=== PATIENT | female | born 1990 | race Caucasian/White ===

== ENCOUNTER 2018-11-06 14:29 | Emergency (ER) | payer OTHER ==
[2018-11-06 14:38] VITALS: BP 108/79
--- NOTE | 2018-11-06 15:58 | EDM.PDOC ---
ED HPI GENERAL MEDICAL PROBLEM - General Chief Complaint: Chest Pain Stated Complaint: CHEST PAIN Time Seen by Provider: 11/06/18 15:28 Source of Information: Reports: Patient, RN Notes Reviewed History Limitations: Reports: No Limitations - History of Present Illness INITIAL COMMENTS - FREE TEXT/NARRATIVE: Patient is a 28-year-old female who presents to the ED for evaluation of bilateral upper abdominal, lower chest pain. The patient notes that she had her wisdom teeth, 3 of these, taken out this morning with no anesthesia. She took one hydrocodone 5/325 for pain relief and 30 minutes after this developed the upper abdominal, lower chest pain. She notes this to be a 10 out of 10 on the pain scale. She states that the pain does radiate to her back. The patient is achy, sharp, and she notes that she had mild shortness of breath when the pain hit. Patient notes that she has had a prior cholecystectomy, and she denies any GERD type of symptoms. She further denies any fever/chills, nausea/vomiting/diarrhea. Bilateral Chest Pain Score (Numeric/FACES): 10 - Related Data Allergies Allergy/AdvReac Type Severity Reaction Status Date / Time ceftriaxone sodium Allergy Rash Verified 11/06/18 14:40 [From Rocephin] Sulfa (Sulfonamide Allergy Tachycardia Verified 11/06/18 14:40 Antibiotics) Home Meds: Home Meds . 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 - Past Surgical History GI Surgical History: Reports: Cholecystectomy Social & Family History - Tobacco Use Smoking Status *Q: Never Smoker - Caffeine Use Caffeine Use: Reports: Coffee - Recreational Drug Use Recreational Drug Use: No ED ROS GENERAL - Review of Systems Review Of Systems: See Below Constitutional: Denies: Fever, Chills HEENT: Reports: No Symptoms Respiratory: Reports: Shortness of Breath (with episode) Cardiovascular: Reports: Chest Pain (lower chest/upper abdomen) Endocrine: Reports: No Symptoms GI/Abdominal: Reports: Abdominal Pain (upper abdomen pain with radiation to back ). Denies: Constipation, Diarrhea, Nausea, Vomiting : Reports: No Symptoms Musculoskeletal: Reports: No Symptoms Skin: Reports: No Symptoms Neurological: Reports: No Symptoms Psychiatric: Reports: No Symptoms Hematologic/Lymphatic: Reports: No Symptoms ED EXAM, GENERAL - Physical Exam Exam: See Below Exam Limited By: No Limitations General Appearance: Alert, WD/WN, No Apparent Distress Eye Exam: Bilateral Eye: EOMI, Normal Inspection Throat/Mouth: Normal Inspection, Normal Lips, Normal Teeth, Normal Gums, Normal Oropharynx, Normal Voice, No Airway Compromise, Other (recent oral surgery, swelling at gums appreciated.) Head: Atraumatic, Normocephalic Neck: Normal Inspection, Supple, Non-Tender, Full Range of Motion Respiratory/Chest: No Respiratory Distress, Lungs Clear, Normal Breath Sounds, No Accessory Muscle Use, Chest Non-Tender Cardiovascular: Normal Peripheral Pulses, Regular Rate, Rhythm, No Murmur GI/Abdominal: Normal Bowel Sounds, Soft, Non-Tender, No Distention, No Mass Extremities: Normal Inspection, Normal Capillary Refill Neurological: Alert, Oriented, Normal Cognition, No Motor/Sensory Deficits Psychiatric: Normal Affect, Normal Mood Skin Exam: Warm, Dry, Intact, Normal Color, No Rash, Other (mild bilateral facial swelling.) EKG INTERPRETATION EKG Date: 11/06/18 Time: 16:03 Rhythm: NSR Rate (Beats/Min): 67 [place]: Normal P-Wave: Present QRS: Normal ST-T: Normal QT: Normal Comparison: NA - No Prior EKG EKG Interpretation Comments: Normal ECG as reported by Dr. Christianson and myself. Course - Vital Signs Last Recorded V/S: Last Vital Signs Temp 97.8 F 11/06/18 14:34 Pulse 75 11/06/18 14:34 Resp 16 11/06/18 14:34 BP 108/79 11/06/18 14:34 Pulse Ox 99 11/06/18 14:34 - Orders/Labs/Meds Orders: Active Orders 24 hr Category Date Time Status EKG 12 Lead [EKG Documentation Completion] [RC] STAT Care 11/06/18 15:07 Active CMP [COMPREHENSIVE METABOLIC PN,CMP] [CHEM] Stat Lab 11/06/18 15:28 Received TROPONIN I [CHEM] Stat Lab 11/06/18 15:28 Received Labs: Laboratory Tests 11/06/18 Range/Units 15:28 WBC 12.49 H (3.98-10.04) K/mm3 RBC 4.67 (3.98-5.22) M/mm3 Hgb 13.0 (11.2-15.7) gm/L Hct 40.0 (34.1-44.9) % MCV 85.7 (79.4-94.8) fl MCH 27.8 (25.6-32.2) pg MCHC 32.5 (32.2-35.5) g/dl RDW Std Deviation 43.0 (36.4-46.3) fL Plt Count 313 (182-369) K/mm3 MPV 10.4 (9.4-12.3) fl Neut % (Auto) 79.2 H (34.0-71.1) % Lymph % (Auto) 14.7 L (19.3-51.7) % [place] % (Auto) 5.4 (4.7-12.5) % Eos % (Auto) 0.3 L (0.7-5.8) Baso % (Auto) 0.2 (0.1-1.2) % Neut # (Auto) 9.90 H (1.56-6.13) K/mm3 Lymph # (Auto) 1.84 (1.18-3.74) K/mm3 [place] # (Auto) 0.67 H (0.24-0.36) K/mm3 Eos # (Auto) 0.04 (0.04-0.36) K/mm3 Baso # (Auto) 0.02 (0.01-0.08) K/mm3 - Re-Assessments/Exams Free Text/Narrative Re-Assessment/Exam: 11/06/18 15:58 Patient presents to the ED for the evaluation of bilateral upper abdominal pain that felt shortly after taking her hydrocodone prescription. Her EKG was within normal limits. Labs are drawn by triage nurse and demonstrate a mildly elevated white count which may be due to a stress response as she had her wisdom teeth removed. I did discuss with the patient further pain management control, if the hydrocodone does not seem to be sitting well with her. She will try to take some Tylenol or ibuprofen every 6 hours as needed instead. Her pain might likely be due to a common bile duct spasm. Departure - Departure Time of Disposition: 16:00 Disposition: Home, Self-Care 01 Condition: Fair Clinical Impression: Upper abdominal pain Instructions: Managing Pain Without Opioids Referrals: PCP,None [Primary Care Provider] - Forms: ED Department Discharge Additional Instructions: You were evaluated in the ED today for your bilateral upper abdominal pain. Your EKG and laboratory evaluations were within normal limits. Your pain may likely be due to a common bile duct spasm after you took pain medication. You may take 500 mg Tylenol or 600 mg ibuprofen every 6 hours as needed, or 1-2 tabs Aleve every 12 hours as needed for further pain relief. Please do not exceed 4000 mg Tylenol or 3200 mg ibuprofen in a 24-hour time span. Please follow all other discharge instructions set forth by your dentist after the dental extraction. Please return to the ED if your symptoms change or worsen. - My Orders Last 24 Hours: My Active Orders 11/06/18 15:07 EKG 12 Lead [EKG Documentation Completion] [RC] STAT 11/06/18 15:28 CMP [COMPREHENSIVE METABOLIC PN,CMP] [CHEM] Stat TROPONIN I [CHEM] Stat - Assessment/Plan Last 24 Hours: My Active Orders 11/06/18 15:07 EKG 12 Lead [EKG Documentation Completion] [RC] STAT 11/06/18 15:28 CMP [COMPREHENSIVE METABOLIC PN,CMP] [CHEM] Stat TROPONIN I [CHEM] Stat
== END 2018-11-06 16:48 | disposition home or self-care (01) ==
LOC: JD.ED 14:29
DX: R10.11 Right upper quadrant pain (principal); R10.12 Left upper quadrant pain; Z88.1 Allergy status to other antibiotic agents; Z88.2 Allergy status to sulfonamides; Z90.49 Acquired absence of other specified parts of digestive tract
CPT/HCPCS: 36415; 80053; 84484; 85025; 93005; 99285-25

== ENCOUNTER 2019-05-13 14:06 | Emergency (ER) | payer OTHER ==
--- NOTE | 2019-05-13 16:53 | US ---
Left lower extremity deep venous ultrasound: Duplex and color Doppler evaluation of the left common femoral, proximal greater saphenous, superficial femoral, popliteal, posterior tibial and peroneal veins were obtained. Right common femoral vein was also evaluated. Comparison: No previous venous imaging is available. Normal phasic flow, augmentation and compression is seen. Impression: 1. No evidence of deep venous thrombosis within the left lower extremity or within the right common femoral vein. Diagnostic code #1 This report was dictated in [place] Standard Time
--- NOTE | 2019-05-13 17:13 | EDM.PDOC ---
ED HPI GENERAL MEDICAL PROBLEM - General Chief Complaint: General Stated Complaint: SOB - 10 WEEKS PG Time Seen by Provider: 05/13/19 14:24 Source of Information: Reports: Patient History Limitations: Reports: No Limitations - History of Present Illness INITIAL COMMENTS - FREE TEXT/NARRATIVE: The patient presents with chest pain that radiates to her back. This started a couple days ago. She has no shortness of breath with it. She has no fever, chills, cough, congestion, runny nose, abdominal pain, nausea or vomiting. She is 10 weeks gestation and . She has some cramping in her left leg at times but no swelling. She has no history of DVT or PE. She does not smoke. It hurts worse to take a deep breath. Onset: Gradual Duration: Day(s): Location: Reports: Chest, Back Quality: Reports: Sharp Severity: Moderate Improves with: Reports: Immobilization Worsens with: Reports: Movement Context: Denies: Trauma Associated Symptoms: Reports: Chest Pain. Denies: Cough, Fever/Chills, Headaches, Nausea/Vomiting, Shortness of Breath Chest Pain Score (Numeric/FACES): 6 - Related Data Allergies Allergy/AdvReac Type Severity Reaction Status Date / Time ceftriaxone sodium Allergy Rash Verified 05/13/19 14:18 [From Rocephin] Sulfa (Sulfonamide Allergy Tachycardia Verified 05/13/19 14:18 Antibiotics) Home Meds: Home Meds . 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 - Past Surgical History GI Surgical History: Reports: Cholecystectomy Female Surgical History: Reports: Section Social & Family History - Tobacco Use Smoking Status *Q: Never Smoker Second Hand Smoke Exposure: No - Caffeine Use Caffeine Use: Reports: None - Recreational Drug Use Recreational Drug Use: No ED ROS GENERAL - Review of Systems Review Of Systems: See Below Constitutional: Reports: No Symptoms HEENT: Reports: No Symptoms Respiratory: Reports: No Symptoms Cardiovascular: Reports: Chest Pain Endocrine: Reports: No Symptoms GI/Abdominal: Reports: No Symptoms : Reports: No Symptoms Musculoskeletal: Reports: Back Pain ED EXAM, GENERAL - Physical Exam Exam: See Below Exam Limited By: No Limitations General Appearance: Alert, No Apparent Distress Ears: Normal External Exam Nose: Normal Inspection Head: Atraumatic, Normocephalic Neck: Normal Inspection Respiratory/Chest: No Respiratory Distress, Lungs Clear, Normal Breath Sounds Cardiovascular: Regular Rate, Rhythm, No Edema, No Murmur GI/Abdominal: Soft, Non-Tender, No Organomegaly, No Mass Back Exam: Normal Inspection Extremities: Normal Inspection Course - Vital Signs Last Recorded V/S: Last Vital Signs Temp 97.4 F 05/13/19 14:15 Pulse 87 05/13/19 14:15 Resp 16 05/13/19 14:15 BP 124/81 05/13/19 14:15 Pulse Ox 98 05/13/19 14:15 - Orders/Labs/Meds Orders: Active Orders 24 hr Category Date Time Status Cardiac Monitoring [RC] . DIRECTED Care 05/13/19 14:49 Active EKG Documentation Completion [RC] ASDIRECTED Care 05/13/19 15:09 Active EKG 12 Lead [EK] Stat Ther 05/13/19 15:08 Ordered Labs: Laboratory Tests 05/13/19 05/13/19 05/13/19 Range/Units 15:17 15:17 15:17 WBC 11.41 H (3.98-10.04) K/mm3 RBC 4.66 (3.98-5.22) M/mm3 Hgb 13.3 (11.2-15.7) gm/dl Hct 40.8 (34.1-44.9) % MCV 87.6 (79.4-94.8) fl MCH 28.5 (25.6-32.2) pg MCHC 32.6 (32.2-35.5) g/dl RDW Std Deviation 45.9 (36.4-46.3) fL Plt Count 289 (182-369) K/mm3 MPV 10.3 (9.4-12.3) fl Neut % (Auto) 73.8 H (34.0-71.1) % Lymph % (Auto) 19.8 (19.3-51.7) % [place] % (Auto) 5.4 (4.7-12.5) % Eos % (Auto) 0.7 (0.7-5.8) Baso % (Auto) 0.1 (0.1-1.2) % Neut # (Auto) 8.42 H (1.56-6.13) K/mm3 Lymph # (Auto) 2.26 (1.18-3.74) K/mm3 [place] # (Auto) 0.62 H (0.24-0.36) K/mm3 Eos # (Auto) 0.08 (0.04-0.36) K/mm3 Baso # (Auto) 0.01 (0.01-0.08) K/mm3 D-Dimer, Quantitative 0.78 H (0.19-0.50) mg/L Sodium 138 (136-145) mEq/L Potassium 3.7 (3.5-5.1) mEq/L Chloride 104 (98-107) mEq/L Carbon Dioxide 23 (21-32) mEq/L Anion Gap 14.7 (5-15) BUN 8 (7-18) mg/dL Creatinine 0.5 L (0.55-1.02) mg/dL Est Cr Clr Drug Dosing 155.41 mL/min Estimated GFR (MDRD) > 60 (>60) mL/min BUN/Creatinine Ratio 16.0 (14-18) Glucose 95 (74-106) mg/dL Calcium 9.3 (8.5-10.1) mg/dL Total Bilirubin 0.5 (0.2-1.0) mg/dL AST 11 L (15-37) U/L ALT 26 (14-59) U/L Alkaline Phosphatase 65 (46-116) U/L Troponin I < 0.017 (0.00-0.056) ng/mL Total Protein 7.4 (6.4-8.2) g/dl Albumin 2.9 L (3.4-5.0) g/dl Globulin 4.5 gm/dL Albumin/Globulin Ratio 0.6 L (1-2) - Re-Assessments/Exams Free Text/Narrative Re-Assessment/Exam: 05/13/19 17:20 I ordered an EKG and it shows a NSR with no acute changes. Her WBC is elevated slightly at 11.41. Her D-dimer was elevated at 0.78. Her CMP is negative. Her troponin is negative. She does have some cramping in her left leg so I got an US of her left leg. The US shows no evidence of DVT within the left lower extremity or within the right common femoral vein. Her vitals are normal and do not support a DVT. Her US looks good. I do not think she has a DVT or PE. I will have her take some tylenol for the pain an follow up with OB. Departure - Departure Time of Disposition: 17:25 Disposition: Home, Self-Care 01 Condition: Good Clinical Impression: Atypical chest pain Thoracic back pain Qualifiers: Chronicity: acute Back pain laterality: bilateral Qualified Code(s): M54.6 - Pain in thoracic spine - Discharge Information *PRESCRIPTION DRUG MONITORING PROGRAM REVIEWED*: Not Applicable *COPY OF PRESCRIPTION DRUG MONITORING REPORT IN PATIENT JOYCELYN: Not Applicable Referrals: Zia Cornejo MD [Primary Care Provider] - 1 Week Forms: ED Department Discharge Additional Instructions: Take tylenol as needed for pain. Drink plenty of fluids. Follow up with your doctor within a week. Please return if you are worse. Sepsis Event Note - Evaluation Sepsis Screening Result: No Definite Risk - Focused Exam Vital Signs: Vital Signs Temp Pulse Resp BP Pulse Ox 05/13/19 14:15 97.4 F 87 16 124/81 98 Date Exam was Performed: 05/13/19 Time Exam was Performed: 17:16 - My Orders Last 24 Hours: My Active Orders 05/13/19 14:49 Cardiac Monitoring [RC] . DIRECTED 05/13/19 15:08 EKG 12 Lead [EK] Stat 05/13/19 15:09 EKG Documentation Completion [RC] ASDIRECTED - Assessment/Plan Last 24 Hours: My Active Orders 05/13/19 14:49 Cardiac Monitoring [RC] . DIRECTED 05/13/19 15:08 EKG 12 Lead [EK] Stat 05/13/19 15:09 EKG Documentation Completion [RC] ASDIRECTED
[2019-05-13 17:36] VITALS: BP 104/57; PULSE 84
== END 2019-05-13 17:30 | disposition home or self-care (01) ==
LOC: JD.ED 14:06
DX: R07.89 Other chest pain (principal); M54.6 Pain in thoracic spine; Z88.2 Allergy status to sulfonamides; Z88.8 Allergy status to other drugs, medicaments and biological substances
CPT/HCPCS: 36415; 80053; 84484; 85025; 85379; 93005; 93010; 93971-26-LT; 93971-LT; 99283; 99285-25

== ENCOUNTER 2019-11-10 05:55 | Inpatient (IN) | payer OTHER ==
[~2019-11-10 05:55] MED LIST: Lidocaine 1.5% with EPINEPHrine 1:200,000 5 ML Amp ONE
[2019-11-10] MEDS ORDERED: Sodium Chloride 0.9% 10 ML Syringe FLUSH PRN (06:59)
[2019-11-10] MEDS ORDERED: Nalbuphine 10 MG/ML Syringe IVPUSH PRN (06:59)
[2019-11-10] MEDS ORDERED: Lidocaine 1% 50 ML MDV INJECT ONE (06:59)
[2019-11-10] MEDS ORDERED: Oxytocin/Lactated Ringers 10 UNIT/1,000 ML BAG IV SCH (07:00)
[2019-11-10] MEDS: Lactated Ringers 1,000 ML IV SCH ×2 (07:05→08:03)
--- NOTE | 2019-11-10 07:22 | PCM.LDHP ---
L&D History of Present Illness - General Date of Service: 11/10/19 Admit Problem/Dx: Patient Status Order with Admit Dx/Problem 11/10/19 06:05 Patient Status [ADT] Routine 11/10/19 06:59 Patient Status [ADT] Routine Admission Diagnosis/Problem Admission Diagnosis/Problem - History of Present Illness Introduction:: 29 year old at 35w6 here in active labor. PNC with Dr. Cornejo complicated only by prior with 4 subsequent vaginal deliveries. - Related Data Allergies/Adverse Reactions: Allergies Allergy/AdvReac Type Severity Reaction Status Date / Time ceftriaxone sodium Allergy Rash Verified 05/13/19 14:18 [From Rocephin] Sulfa (Sulfonamide Allergy Tachycardia Verified 05/13/19 14:18 Antibiotics) Home Medications: Home Meds . [No Known Home Meds] 11/06/18 [History] Past Medical History Other OB/BYN History: csection 9yrs ago - Past Surgical History GI Surgical History: Reports: Cholecystectomy Female Surgical History: Reports: Section Social & Family History - Caffeine Use Caffeine Use: Reports: None H&P Review of Systems - Review of Systems: Review Of Systems: See Below General: Reports: No Symptoms HEENT: Reports: No Symptoms Pulmonary: Reports: No Symptoms Cardiovascular: Reports: No Symptoms Gastrointestinal: Reports: No Symptoms Genitourinary: Reports: No Symptoms Musculoskeletal: Reports: No Symptoms Skin: Reports: No Symptoms Psychiatric: Reports: No Symptoms Neurological: Reports: No Symptoms Hematologic/Lymphatic: Reports: No Symptoms Immunologic: Reports: No Symptoms L&D Exam - Exam Exam: See Below - Vital Signs Vital Signs: Last Vital Signs Temp 36.3 C 11/10/19 06:51 Pulse 91 11/10/19 06:51 Resp 15 11/10/19 06:51 BP 133/83 11/10/19 06:51 Pulse Ox - OB Specific Contraction Intensity: Moderate to Strong Movement: Active Heart Tones: Present - Ramirez Score Ramirez Score Cervix Position: Anterior Ramirez Score Consistency: Soft Ramirez Score Effacement: 51-70% Ramirez Score Dilation: > 5 cm Ramirez Score 's Station: -3 Ramirez Score Total: 9 - Exam General: Alert, Oriented HEENT: PERRLA, Conjunctiva Clear, EACs Clear, EOMI, Hearing Intact, Mucosa Moist & [place], Nares Patent, Normal Nasal Septum, Posterior Pharynx Clear, TMs Clear Neck: Supple, Trachea Midline Lungs: Clear to Auscultation, Normal Respiratory Effort Cardiovascular: Regular Rate, Regular Rhythm GI/Abdominal Exam: Normal Bowel Sounds, Soft, Non-Tender, No Organomegaly, No Distention, No Abnormal Bruit, No Mass, Pelvis Stable Back Exam: Normal Inspection, Full Range of Motion Extremities: Normal Inspection, Normal Range of Motion, Non-Tender, No Pedal Edema, Normal Capillary Refill Skin: Warm, Dry, Intact Neurological: Cranial Nerves Intact, Reflexes Equal Bilateral Psychiatric: Alert, Normal Affect, Normal Mood Problem List Initiated/Reviewed/Updated: Yes Orders Last 24hrs: Active Orders 24 hr Category Date Time Status Patient Status [ADT] Routine ADT 11/10/19 06:59 Active Activity as Tolerated [RC] PFP Care 11/10/19 06:59 Active Communication Order [RC] ASDIRECTED Care 11/10/19 06:59 Active Heart Tones [RC] ASDIRECTED Care 11/10/19 07:00 Active Non Stress Test [RC] PER UNIT ROUTINE Care 11/10/19 06:05 Active Notify Provider [RC] PFP Care 11/10/19 06:59 Active Notify Provider [RC] PRN Care 11/10/19 06:59 Active Peripheral IV Care [RC] . DIRECTED Care 11/10/19 07:00 Active Urinary Catheter Assessment [RC] ASDIRECTED Care 11/10/19 06:59 Active Vital Signs [RC] PER UNIT ROUTINE Care 11/10/19 06:05 Active Regular Diet [DIET] Diet 11/10/19 Breakfast Active CBC WITH AUTO DIFF [HEME] Stat Lab 11/10/19 06:59 Ordered GROUP B STREP BY PCR [MOLEC] Routine Lab 11/10/19 06:30 Received RAPID PLASMA REAGIN,RPR [CHEM] Routine Lab 11/10/19 06:59 Ordered Lactated Ringers [Ringers, Lactated] 1,000 ml Med 11/10/19 07:00 Active IV ASDIRECTED Nalbuphine [Nubain] Med 11/10/19 06:59 Active 10 mg IVPUSH Q2H PRN Oxytocin/Lactated Ringers [Pitocin in LR 10 Units/1,000 Med 11/10/19 07:00 Active ML] 10 unit in 1,000 ml IV .CONTINUOUS Sodium Chloride 0.9% [Saline Flush] Med 11/10/19 06:59 Active 10 ml FLUSH ASDIRECTED PRN Vancomycin [Vancocin] 1 gm Med 11/10/19 09:00 Active Sodium Chloride 0.9% [Normal Saline (AdvBag)] 250 ml IV Q12HR Electronic Heart Tones Ext w TOCO [WOMSER] Ot 11/10/19 06:59 Ordered Routine Electronic Heart Tones Internal [WOMSER] Per Unit Ot 11/10/19 06:59 Ordered Routine Peripheral IV Insertion Adult [OM.PC] Routine Oth 11/10/19 06:59 Ordered Resuscitation Status Routine Resus Stat 11/10/19 06:05 Ordered Medication Orders Lactated Ringer's (Ringers, Lactated) 1,000 mls @ 100 mls/hr IV ASDIRECTED LYUDMILA Vancomycin HCl 1 gm/ Sodium (Chloride) 250 mls @ 167 mls/hr IV Q12HR LYUDMILA Oxytocin/Lactated Ringer's (Pitocin In Lr 10 Units/1,000 Ml) 10 unit in 1,000 mls @ 100 mls/hr IV .CONTINUOUS LYUDMILA; Protocol Nalbuphine HCl (Nubain) 10 mg IVPUSH Q2H PRN PRN Reason: Pain Sodium Chloride (Saline Flush) 10 ml FLUSH ASDIRECTED PRN PRN Reason: Keep Vein Open Assessment/Plan Comment:: labor. Dr. Herrera aware. 35w6d. Active and risk of delivery en route high enough will not transfer. GBS pending and allergies so will use vancomycin as no sensitivities available TOLAC. Has been planning this. Good candidate as prior successful. Does understand risk of rupture including maternal or .
[2019-11-10] MEDS ORDERED: fentaNYL 100 MCG/2 ML SDV ONE (07:23)
[2019-11-10] MEDS ORDERED: diphenhydrAMINE 50 MG/ML SDV IVPUSH PRN (07:44)
[2019-11-10] MEDS ORDERED: fentaNYL 100 MCG/2 ML SDV EPIDUR PRN (07:44)
[2019-11-10] MEDS ORDERED: Bupivacaine/fentaNYL/NS 100 ML Bag EPIDUR PRN (07:44)
[2019-11-10] MEDS ORDERED: ePHEDrine 50 MG/ML SDV IVPUSH PRN (07:44)
--- NOTE | 2019-11-10 07:49 | PCM.PREANE ---
Preanesthetic Assessment - Procedure Proposed Procedure: Continuous labor epidural - Anesthesia/Transfusion/Family Hx Anesthesia History: Prior Anesthesia Without Reaction Transfusion History: Prior Transfusion Without Reaction - Review of Systems General: No Symptoms Pulmonary: No Symptoms Cardiovascular: No Symptoms Gastrointestinal: No Symptoms Neurological: No Symptoms Other: Reports: None - Physical Assessment Vital Signs: Last Vital Signs Temp 97.4 F 11/10/19 06:51 Pulse 91 11/10/19 06:51 Resp 15 11/10/19 06:51 BP 133/83 11/10/19 06:51 Pulse Ox Height: 1.68 m Weight: 102.058 kg ASA Class: 2 Mental Status: Alert & Oriented x3 Airway Class: Mallampati = 1 Dentition: Reports: Normal Dentition Thyro-Mental Finger Breadths: 3 Mouth Opening Finger Breadths: 3 ROM/Head Extension: Full Lungs: Clear to Auscultation, Normal Respiratory Effort Cardiovascular: Regular Rate, Regular Rhythm - Lab Values: Laboratory Last Values WBC 10.31 K/mm3 (3.98-10.04) H 11/10/19 07:07 RBC 4.04 M/mm3 (3.98-5.22) 11/10/19 07:07 Hgb 10.7 gm/dl (11.2-15.7) L 11/10/19 07:07 Hct 34.4 % (34.1-44.9) 11/10/19 07:07 MCV 85.1 fl (79.4-94.8) D 11/10/19 07:07 MCH 26.5 pg (25.6-32.2) 11/10/19 07:07 MCHC 31.1 g/dl (32.2-35.5) L 11/10/19 07:07 RDW Std Deviation 44.3 fL (36.4-46.3) 11/10/19 07:07 Plt Count 316 K/mm3 (182-369) 11/10/19 07:07 MPV 10.1 fl (9.4-12.3) 11/10/19 07:07 Neut % (Auto) 73.5 % (34.0-71.1) H 11/10/19 07:07 Lymph % (Auto) 18.7 % (19.3-51.7) L 11/10/19 07:07 [place] % (Auto) 7.0 % (4.7-12.5) 11/10/19 07:07 Eos % (Auto) 0.4 (0.7-5.8) L 11/10/19 07:07 Baso % (Auto) 0.1 % (0.1-1.2) 11/10/19 07:07 Neut # (Auto) 7.58 K/mm3 (1.56-6.13) H 11/10/19 07:07 Lymph # (Auto) 1.93 K/mm3 (1.18-3.74) 11/10/19 07:07 [place] # (Auto) 0.72 K/mm3 (0.24-0.36) H 11/10/19 07:07 Eos # (Auto) 0.04 K/mm3 (0.04-0.36) 11/10/19 07:07 Baso # (Auto) 0.01 K/mm3 (0.01-0.08) 11/10/19 07:07 - Allergies Allergies/Adverse Reactions: Allergies Allergy/AdvReac Type Severity Reaction Status Date / Time ceftriaxone sodium Allergy Rash Verified 11/10/19 07:35 [From Rocephin] Sulfa (Sulfonamide Allergy Tachycardia Verified 11/10/19 07:35 Antibiotics) - Acknowledgements Anesthesia Type Planned: Epidural Pt an Appropriate Candidate for the Planned Anesthesia: Yes Alternatives and Risks of Anesthesia Discussed w Pt/Guardian: Yes Pt/Guardian Understands and Agrees with Anesthesia Plan: Yes PreAnesthesia Questionnaire Other OB/BYN History: csection 9yrs ago - Past Surgical History GI Surgical History: Reports: Cholecystectomy Female Surgical History: Reports: Section - HOME MEDS Home Medications: Home Meds Pnv,Calcium 72/Iron/Folic Acid [ Plus Tablet] 1 tab PO DAILY 11/10/19 [History] - CURRENT (IN HOUSE) MEDS Current Meds: Current Medications Lactated Ringer's (Ringers, Lactated) 1,000 mls @ 100 mls/hr IV ASDIRECTED [facility] Last Admin: 11/10/19 07:05 Dose: 999 mls/hr Documented by: Vancomycin HCl 1 gm/ Sodium (Chloride) 250 mls @ 167 mls/hr IV Q12HR [facility] Last Admin: 11/10/19 07:15 Dose: 167 mls/hr Documented by: Oxytocin/Lactated Ringer's (Pitocin In Lr 10 Units/1,000 Ml) 10 unit in 1,000 mls @ 100 mls/hr IV .CONTINUOUS LYUDMILA; Protocol Nalbuphine HCl (Nubain) 10 mg IVPUSH Q2H PRN PRN Reason: Pain Sodium Chloride (Saline Flush) 10 ml FLUSH ASDIRECTED PRN PRN Reason: Keep Vein Open Discontinued Medications Fentanyl (Sublimaze) Confirm Administered Dose 100 mcg .ROUTE .DNAe LTD-MED ONE Stop: 11/10/19 07:24 Lidocaine HCl (Xylocaine 1%) 50 ml INJECT ONETIME ONE Stop: 11/10/19 07:00
--- NOTE | 2019-11-10 10:36 | PCM.SN.2 ---
- Free Text/Narrative Note: Stage I - Patient presented in active labor. Changed from 3 to 5 cm in less than an hour. Epidural for anesthesia. Antibiotics for unknown GBS given. AROM clear fluid. Progressed rapidly to complete. Stage II - of viable female, 7#, 8/9 APGARS at 1000. Head delivered in controlled manner over intact perineum. body and shoulders followed without difficulty. To maternal abdomen. Positive cry. Cord clamped and cut after one minute of life. To warmer. Cord blood collected. Stage III - of intact placenta. 3vc. No lacerations. EBL 200.
[2019-11-10] MEDS ORDERED: Witch Hazel Medicated Pads 40/Jar TOP PRN (11:07)
[2019-11-10] MEDS ORDERED: Docusate Sodium 100 MG Cap PO PRN (11:07)
[2019-11-10] MEDS: Ibuprofen 600 MG Tab PO PRN (14:08)
--- NOTE | 2019-11-11 07:32 | PCM48HPAN ---
Post Anesthesia Note - EVALUATION WITHIN 48HRS OF ANESTHETIC Vital Signs in Normal Range: Yes Patient Participated in Evaluation: Yes Respiratory Function Stable: Yes Airway Patent: Yes Cardiovascular Function Stable: Yes Hydration Status Stable: Yes Pain Control Satisfactory: Yes Nausea and Vomiting Control Satisfactory: Yes Mental Status Recovered: Yes Vital Signs: Last Vital Signs Temp 97.5 F 11/11/19 04:36 Pulse 73 11/11/19 04:36 Resp 16 11/11/19 04:36 BP 133/82 11/11/19 04:36 Pulse Ox 96 11/11/19 04:36
[2019-11-11] MEDS: Ibuprofen 600 MG Tab PO PRN (14:56)
[2019-11-12 03:27] VITALS: BP 123/78; PULSE 67
--- NOTE | 2019-11-12 06:45 | PCM.DCSUM1 ---
Discharge Summary - Hospital Course Diagnosis: Stroke: No - Discharge Data Discharge Date: 11/12/19 Discharge Disposition: Home, Self-Care 01 Condition: Good - Referral to Home Health Primary Care Physician: Zia Cornejo MD - Patient Summary/Data Hospital Course: Stage I - Patient presented in active labor. Changed from 3 to 5 cm in less than an hour. Epidural for anesthesia. Antibiotics for unknown GBS given. AROM clear fluid. Progressed rapidly to complete. Stage II - of viable female, 7#, 8/9 APGARS at 1000. Head delivered in controlled manner over intact perineum. body and shoulders followed without difficulty. To maternal abdomen. Positive cry. Cord clamped and cut after one minute of life. To warmer. Cord blood collected. Stage III - of intact placenta. 3vc. No lacerations. EBL 200. - Patient Instructions Showering/Bathing: May Shower Notify Provider of: Fever, Increased Pain, Swelling and Redness, Drainage, Nausea and/or Vomiting - Discharge Plan *PRESCRIPTION DRUG MONITORING PROGRAM REVIEWED*: No *COPY OF PRESCRIPTION DRUG MONITORING REPORT IN PATIENT JOYCELYN: No Home Medications: Home Meds Pnv,Calcium 72/Iron/Folic Acid [ Plus Tablet] 1 tab PO DAILY 11/10/19 [History] - Discharge Summary/Plan Comment DC Time >30 min.: No - Patient Data Vitals - Most Recent: Last Vital Signs Temp 36.4 C 11/12/19 02:49 Pulse 67 11/12/19 02:49 Resp 15 11/12/19 02:49 BP 123/78 11/12/19 02:49 Pulse Ox 98 11/12/19 02:49 Weight - Most Recent: 102.058 kg I&O - Last 24 hours: Intake & Output 11/11/19 11/11/19 11/12/19 14:59 22:59 06:59 Intake Total 120 240 Balance 120 240 Lab Results - Last 24 hrs: Laboratory Results - last 24 hr 11/10/19 Range/Units 06:30 Group B Strep (PCR) Negative (NEGATIVE) Med Orders - Current: Current Medications Docusate Sodium (Colace) 100 mg PO BID PRN PRN Reason: Constipation Ibuprofen (Motrin) 600 mg PO Q6H PRN PRN Reason: Mild pain or fever Last Admin: 11/11/19 14:56 Dose: 600 mg Documented by: Maribell Valles) 1 pad TOP ASDIRECTED PRN PRN Reason: Pain Discontinued Medications Diphenhydramine HCl (Benadryl) 25 mg IVPUSH Q6H PRN PRN Reason: pruritis Ephedrine Sulfate (Ephedrine Sulfate) 5 mg IVPUSH ASDIRECTED PRN PRN Reason: Hypotension Fentanyl (Sublimaze) Confirm Administered Dose 100 mcg .ROUTE .STK-MED ONE Stop: 11/10/19 07:24 Last Admin: 11/10/19 08:49 Dose: Not Given Documented by: Fentanyl (Sublimaze) 100 mcg EPIDUR Q3H PRN PRN Reason: Pain Last Admin: 11/10/19 08:34 Dose: 100 mcg Documented by: Fentanyl/Bupivacaine HCl (Fentanyl/Bupivacaine/Ns 2 Mcg-0.125% 100 Ml) 100 ml EPIDUR ASDIRECTED PRN PRN Reason: Pain Last Admin: 11/10/19 08:35 Dose: 100 ml Documented by: Lactated Ringer's (Ringers, Lactated) 1,000 mls @ 100 mls/hr IV ASDIRECTED LYUDMILA Last Admin: 11/10/19 08:03 Dose: 999 mls/hr Documented by: Vancomycin HCl 1 gm/ Sodium (Chloride) 250 mls @ 167 mls/hr IV Q12HR LYUDMILA Last Admin: 11/10/19 11:19 Dose: Not Given Documented by: Oxytocin/Lactated Ringer's (Pitocin In Lr 10 Units/1,000 Ml) 10 unit in 1,000 mls @ 100 mls/hr IV .CONTINUOUS LYUDMILA; Protocol Lidocaine HCl (Xylocaine 1%) 50 ml INJECT ONETIME ONE Stop: 11/10/19 07:00 Last Admin: 11/10/19 11:19 Dose: Not Given Documented by: Lidocaine/Epinephrine (Xylocaine-Mpf 1.5% W/Epinephrine 1:200,000) 5 ml .ROUTE .STK-MED ONE Stop: 11/10/19 00:01 Lidocaine/Epinephrine (Xylocaine-Mpf 1.5% W/Epinephrine 1:200,000) 5 ml .ROUTE .STK-MED ONE Stop: 11/10/19 00:01 Nalbuphine HCl (Nubain) 10 mg IVPUSH Q2H PRN PRN Reason: Pain Sodium Chloride (Saline Flush) 10 ml FLUSH ASDIRECTED PRN PRN Reason: Keep Vein Open
== END 2019-11-12 09:23 | disposition home or self-care (01) | DRG 807 ==
LOC: JD.OBCHECK 05:55 → JD.OB 06:00 → JD.OBCHECK 06:58 → JD.OB 06:59 → OBSVTOIN 10:00 → JD.OB 10:24
PROVIDERS: ADMIT Obstetrics & Gynecology; ATTEND Obstetrics & Gynecology
PROC: 10E0XZZ Delivery of Products of Conception, External Approach (ICD-10-PCS; principal; 2019-11-10)
PROC: 10907ZC Drainage of Amniotic Fluid, Therapeutic from Products of Conception, Via Natural or Artificial Opening (ICD-10-PCS; 2019-11-10)
PROC: 3E0R3BZ Introduction of Anesthetic Agent into Spinal Canal, Percutaneous Approach (ICD-10-PCS; 2019-11-10)
PROC: 00HU33Z Insertion of Infusion Device into Spinal Canal, Percutaneous Approach (ICD-10-PCS; 2019-11-10)
DX: O60.14X0 Preterm labor third trimester with preterm delivery third trimester, not applicable or unspecified (principal); Z37.0 Single live birth; Z3A.35 35 weeks gestation of pregnancy; O34.211 Maternal care for low transverse scar from previous cesarean delivery; Z20.828 Contact with and (suspected) exposure to other viral communicable diseases
CPT/HCPCS: 01967; 36415; 51701; 59025; 59409; 85025; 86592; 87653; A9270-GY; J3010; J3370; J7050; J7120; U0002

== ENCOUNTER 2024-05-15 17:09 | Emergency (ER) | payer BC, OTHER ==
[2024-05-15 18:00] LABS: BASOPHILS PERCENT AUTO 0.4 % (0.0-1.0); EOSINOPHILS ABSOLUTE AUTO 0.1 K/mm3 (0.0-0.4); EOSINOPHILS PERCENT AUTO 0.9 % (0.0-6.0); HEMATOCRIT 40.2 % (37.0-47.0); HEMOGLOBIN 13.1 gm/dl (12.0-16.0); IMMATURE GRAN ABSOLUTE AUTO 0.03 K/mm3 (0.00-0.05); IMMATURE GRAN PERCENT AUTO 0.3 % (0.0-0.4); LYMPHOCYTES ABSOLUTE AUTO 4.2 K/mm3 (1.0-4.8); LYMPHOCYTES PERCENT AUTO 38.4 % (24.0-44.0); MEAN CORPUSCULAR HGB CONC 32.6 g/dl (32.0-36.0); MEAN CORPUSCULAR VOLUME 82.9 fl (83.0-99.0); MEAN PLATELET VOLUME 10.2 fl (9.4-12.3); MONOCYTES ABSOLUTE AUTO 0.5 K/mm3 (0.0-0.8); MONOCYTES PERCENT AUTO 4.3 % (0.0-8.0); NEUTROPHILS ABSOLUTE AUTO 6.2 K/mm3 (1.8-7.7); NEUTROPHILS PERCENT AUTO 55.7 % (41.0-71.0); PLATELET COUNT,PLT 325 K/mm3 (150-400); RED BLOOD CELL COUNT 4.85 M/mm3 (4.10-5.30); WHITE BLOOD CELL COUNT,WBC 11.05 K/mm3 (3.9-11.3)
[2024-05-15] MEDS ORDERED: Famotidine 20 MG/2 ML SDV IVPUSH ONE (18:29)
[2024-05-15] MEDS ORDERED: Naloxone 0.4 MG/ML SDV IVPUSH PRN (18:30)
[2024-05-15] MEDS: fentaNYL 100 MCG/2 ML SDV IVPUSH ONE (18:41)
[2024-05-15] MEDS: Aspirin 81 MG Tab.Chew PO ONE (18:41)
[2024-05-15 18:56] LABS: A/G RATIO 0.9 (1-2); ALBUMIN 3.7 g/dl (3.4-5.0); ANION GAP 15.5 (5-15); BILIRUBIN TOTAL 0.7 mg/dL (0.2-1.0); BUN/CREATININE RATIO 13.3 (14-18); CALCIUM 9.6 mg/dL (8.5-10.1); CREATININE 0.9 mg/dL (0.55-1.02); EST CRCL DRUG DOSING (CG) 82.45 mL/min; POTASSIUM,K 3.5 mEq/L (3.5-5.1); PROTEIN TOTAL,TP 7.9 g/dl (6.4-8.2); TSH 1.505 uIU/mL (0.358-3.74)
[2024-05-15] MEDS: Famotidine 20 MG/2 ML SDV IVPUSH ONE (19:14)
[2024-05-15 20:18] VITALS: BP 119/79; PULSE 81
== END 2024-05-15 20:11 | disposition home or self-care (01) ==
LOC: JD.ED 17:09
DX: R07.89 Other chest pain (principal); Z88.1 Allergy status to other antibiotic agents; Z88.2 Allergy status to sulfonamides
CPT/HCPCS: 36415; 80053; 84443; 84484; 84702; 84703; 85025; 93005; 96374; 96375; 99285; A9270; J3010; 93010; 99284